=== PATIENT | male | born 1960 | race Caucasian/White ===

== ENCOUNTER 2021-03-30 09:12 | Emergency (ER) | payer OTHER ==
[2021-03-30 09:25] VITALS: BP 148/90; PULSE 62; TEMP 98.7; BMI 34.2
[2021-03-30] MEDS ORDERED: FLUORESCEIN NA 1 EA STRIP OD ONE (09:44)
[2021-03-30] MEDS ORDERED: TETRACAINE 0.5% HCL 0.6ML DROPPER.BOTTLE OD ONE (09:45)
[2021-03-30] MEDS ORDERED: TETRACAINE 0.5% OPHTH SOLN 2 ML BOTTLE ONE (09:47)
[2021-03-30] MEDS ORDERED: FLUORESCEIN NA 1 EA STRIP ONE (09:47)
== END 2021-03-30 10:36 | disposition home or self-care (01) ==
LOC: FER 09:12
DX: T26.91XA Corrosion of right eye and adnexa, part unspecified, initial encounter (principal); T26.92XA Corrosion of left eye and adnexa, part unspecified, initial encounter
CPT/HCPCS: 99283-25

== ENCOUNTER 2023-08-03 05:03 | Emergency (ER) | payer OTHER ==
[2023-08-03 05:12] VITALS: BMI 34.4
[2023-08-03] MEDS ORDERED: PHENAZOPYRIDINE HCL 100 MG TABLET (FP) ONE (05:35)
[2023-08-03] MEDS ORDERED: ACETAMINOPHEN INJECTION 100 ML IVPB ONE (05:35)
[2023-08-03] MEDS: PHENAZOPYRIDINE HCL 100 MG TABLET (FP) PO ONE (05:50)
[2023-08-03] MEDS: SODIUM CHLORIDE 1,000 ML IV ONE (05:50)
[2023-08-03] MEDS: ACETAMINOPHEN 1000 MG/100 ML BAG IVPB ONE (05:50)
[2023-08-03 06:28] LABS: EPI CELLS 0 /uL (0-25.1); HYALINE CASTS 2 /uL (0-3.1); URINE APPEARANCE CLOUDY; URINE BACTERIA 9 /uL (0-1359); URINE BILIRUBIN NEGATIVE (NEGATIVE); URINE COLOR RED; URINE GLUCOSE (UA) NEGATIVE (NEGATIVE); URINE KETONE NEGATIVE (NEGATIVE); URINE LEUK ESTERASE 2+ (NEGATIVE); URINE NITRITE NEGATIVE (NEGATIVE); URINE PROTEIN 3+ (NEGATIVE); URINE RBC 16554 /uL (0-23.9); URINE WBC 737 /uL (0-25.8)
[2023-08-03 06:36] LABS: HEMATOCRIT 43.1 % (35.4-49); HEMOGLOBIN 14.7 GM/dL (11.7-16.9); MCH 29.3 pg (25.7-33.7); MCHC 34.2 g/dl (32.0-35.9); MEAN CELL VOLUME 85.7 fl (80-96); MEAN PLT VOLUME 7.7 fl (7.5-11.1); PLATELET COUNT 237 10^3/uL (134-434); RBC 5.03 M/mm3 (4.00-5.60); WHITE BLOOD COUNT 12.3 K/mm3 (4.0-10.0)
[2023-08-03 07:15] LABS: POTASSIUM 4.1 mmol/L (3.5-5.1)
[2023-08-03 07:17] LABS: CALCIUM 8.9 mg/dL (8.5-10.1)
[2023-08-03 07:18] LABS: ALBUMIN 3.8 g/dl (3.4-5.0); BLOOD UREA NITROGEN 19.7 mg/dL (7-18)
[2023-08-03 07:21] LABS: CREATININE 0.8 mg/dL (0.55-1.3)
[2023-08-03 07:23] LABS: BILIRUBIN,TOTAL 0.9 mg/dL (0.2-1); TOT PROT 7.7 g/dl (6.4-8.2)
[2023-08-03] MEDS ORDERED: cefTRIAXone SODIUM 1 GM VIAL ONE (07:25)
[2023-08-03] MEDS: CEFTRIAXONE 1 GM in DEXTROSE 5%-WATER - 100 ML IVPB ONE (07:29)
[2023-08-03 07:31] LABS: LACTIC ACID 3.1 mmol/L (0.4-2.0)
[2023-08-03] MEDS: SODIUM CHLORIDE 0.9% 1000 ML INFUS.BAG IV ONE (07:59)
[2023-08-03 11:06] LABS: LACTIC ACID 2.4 mmol/L (0.4-2.0)
[2023-08-03 11:16] VITALS: BP 130/77; PULSE 73; RESP 19; TEMP 99
== END 2023-08-03 11:22 | disposition home or self-care (01) ==
LOC: FER 05:03
PROC: 3E03329 Introduction of Other Anti-infective into Peripheral Vein, Percutaneous Approach (ICD-10-PCS; principal; 2023-08-03)
PROC: 3E033NZ Introduction of Analgesics, Hypnotics, Sedatives into Peripheral Vein, Percutaneous Approach (ICD-10-PCS; 2023-08-03)
PROC: 3E0337Z Introduction of Electrolytic and Water Balance Substance into Peripheral Vein, Percutaneous Approach (ICD-10-PCS; 2023-08-03)
DX: N39.0 Urinary tract infection, site not specified (principal); R35.0 Frequency of micturition; R50.9 Fever, unspecified; R30.0 Dysuria; R10.30 Lower abdominal pain, unspecified
CPT/HCPCS: 36415; 80053; 81003; 83605; 85027; 87040; 87086; 99284-25; J0131